=== PATIENT | male | born 1960 | race Caucasian/White ===

== ENCOUNTER 2017-02-17 17:14 | Emergency (ER) | payer OTHER ==
[~2017-02-17] VITALS: Ht 177.8 cm; Wt 143.8 kg
[2017-02-17] MEDS ORDERED: PRED50TA PO (17:50)
[2017-02-17] MEDS ORDERED: SULF1TAB24 PO (17:50)
[2017-02-17] MEDS ORDERED: predniSONE 10 MG TABLET PO ONE (18:00)
[2017-02-17] MEDS ORDERED: SMZ/TMP 800/160MG TABLET. PO ONE (18:00)
[2017-02-17 18:05] VITALS: BP 138/101
--- NOTE | 2017-02-17 18:25 | ED.ADGEN ---
Past History Past Medical History: GERD, Sinusitis, Other Past Surgical History: Other Alcohol Use: Occasionally Drug Use: None Adult General Chief Complaint Chief Complaint " My sinusitis is killing me... I ve been doing the nasal irrigation.. but it not enough.. when they get this bad and last this long... they put me on antibiotic...." HPI HPI Patient is a 57 year old male who presents with exacerbations of his sinusitis. 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 He has occasional sinus flareups particularly in seasonal changes of the year. Has had previous rhinoplasty. Patient denies any immunosuppression. Patient reports increased nasal discharge and discoloration and pain over sinuses. Review of Systems Review of Systems Constitutional: Denies fever or chills [] Eyes: Denies change in visual acuity, redness, or eye pain [] HENT:Complaints of nasal congestion and sore throat [] Respiratory: Denies cough or shortness of breath [] Cardiovascular: No additional information not addressed in HPI [] GI: Denies abdominal pain, nausea, vomiting, bloody stools or diarrhea [] : Denies dysuria or hematuria [] Musculoskeletal: Denies back pain or joint pain [] Integument: Denies rash or skin lesions [] Neurologic: Denies headache, focal weakness or sensory changes [] Endocrine: Denies polyuria or polydipsia [] All other systems were reviewed and found to be within normal limits, except as documented in this note. Family History Family History Noncontributory Current Medications Current Medications Current Medications Medications (Trade) Dose Ordered Sig/Sarah Start Time Stop Time Status Last Admin Dose Admin Prednisone (Prednisone) 50 mg 1X ONCE 02/17/17 18:00 02/17/17 18:01 DC 02/17/17 17:57 50 MG Trimethoprim/ Sulfamethoxazole (Bactrim Ds) 1 tab 1X ONCE 02/17/17 18:00 02/17/17 18:01 DC 02/17/17 17:56 1 TAB Allergies Allergies Allergies Coded Allergies Type Severity Reaction Last Updated Verified amoxicillin Allergy Unknown 02/17/17 Yes azithromycin Allergy Unknown 02/17/17 Yes cefdinir Allergy Unknown 02/17/17 Yes clavulanic acid Allergy Unknown 02/17/17 Yes Physical Exam Physical Exam Constitutional: Well developed, well nourished, in acute distress, non-toxic appearance. [] HENT: Normocephalic, atraumatic, bilateral external ears normal, oropharynx moist, postnasal drainage and erythema, no oral exudates, nose swollen turbinates with discolored rhinorrhea Eyes: PERRLA, EOMI, conjunctiva normal, no discharge. [] Neck: Normal range of motion, no tenderness, supple, no stridor. [] Cardiovascular:Heart rate regular rhythm, no murmur [] Lungs & Thorax: Bilateral breath sounds clear to auscultation [] Abdomen: Bowel sounds normal, soft, no tenderness, no masses, no pulsatile masses. [] Skin: Warm, dry, no erythema, no rash. [] Back: No tenderness, no CVA tenderness. [] Extremities: No tenderness, no cyanosis, no clubbing, ROM intact, no edema. [] Neurologic: Alert and oriented X 3, normal motor function, normal sensory function, no focal deficits noted. [] Psychologic: Affect normal, judgement normal, mood normal. [] Current Patient Data Vital Signs Vital Signs Date Time Temp Pulse Resp B/P (MAP) Pulse Ox O2 Delivery O2 Flow Rate FiO2 02/17/17 18:05 85 20 138/101 (113) 95 Room Air 02/17/17 17:14 98.4 EKG EKG [] Radiology/Procedures Radiology/Procedures [] Course & Med Decision Making Course & Med Decision Making Pertinent Labs and Imaging studies reviewed. (See chart for details). Patient to complete a course of Bactrim DS twice a day for 10 days. Patient take prednisone 50 mg a day for 5 days. Patient used Flonase 2 sprays at night daily. Patient use nasal saline rinses. Patient may use Benadryl at night. Patient follow-up with ENT in primary if no improvement. Patient may use Afrin 2 sprays at night for congestion [] Final Impression Final Impression 1. Sinusitis[] Problems: Dragon Disclaimer Dragon Disclaimer This electronic medical record was generated, in whole or in part, using a voice recognition dictation system. MANINDER ARREDONDO MD Feb 17, 2017 18:25
== END 2017-02-17 18:03 | disposition home or self-care (01) ==
LOC: ER 17:14
DX: J32.9 Chronic sinusitis, unspecified (principal); K21.9 Gastro-esophageal reflux disease without esophagitis; Z88.1 Allergy status to other antibiotic agents
CPT/HCPCS: 99283; J7512

== ENCOUNTER → 2019-10-29 | Outpatient (CLI) | payer OTHER ==
[~2019-10-29] MED LIST: PRED50TA PO; SULF1TAB24 PO
[2019-10-29 09:09] LABS: BASO % 1 % (0-3); EOS # 0.1 x10^3/uL (0.0-0.7); EOS % 2 % (0-3); HEMATOCRIT 43.5 % (39.0-53.0); HEMOGLOBIN 14.6 g/dL (13.0-17.5); LYMPH # 1.1 x10^3/uL (1.0-4.8); LYMPH % 23 % (24-48); MEAN CORPUSCULAR HEMOGLOBIN 30 pg (25-35); MEAN CORPUSCULAR HGB CONC 34 g/dL (31-37); MEAN CORPUSCULAR VOLUME 89 fL (79-100); MONO # 0.6 x10^3/uL (0.0-1.1); MONO % 13 % (0-9); NEUT # 3.1 x10^3uL (1.8-7.7); NEUT % 63 % (31-73); PLATELET COUNT 204 x10^3/uL (140-400); RED CELL DISTRIBUTION WIDTH 13.2 % (11.5-14.5)
[2019-10-29 09:13] LABS: ALBUMIN 3.6 g/dL (3.4-5.0); ALBUMIN/GLOBULIN RATIO 0.9 (1.0-1.7); CALCIUM 8.9 mg/dL (8.5-10.1); CREATININE 1.4 mg/dL (0.7-1.3); GFR 51.9; POTASSIUM 4.3 mmol/L (3.5-5.1); TOTAL BILIRUBIN 0.5 mg/dL (0.2-1.0); TOTAL PROTEIN 7.6 g/dL (6.4-8.2)
[2019-10-29 09:22] LABS: CLARITY,URINE CLEAR; COLOR,URINE STRAW
[2019-10-29 09:23] LABS: BILIRUBIN,URINE NEG (NEG); GLUCOSE,URINE NEG (NEG)
[2019-10-29 09:24] LABS: BACTERIA,URINE 0 /HPF (0-FEW); NITRITE,URINE NEG (NEG); RBC,URINE 0 /HPF (0-2); UROBILINOGEN,URINE 0.2 mg/dL (0.2 mg/dL)
[2019-10-29 09:25] LABS: SQUAMOUS EPITHELIAL CELL,UR OCC /LPF
[2019-10-29 14:28] LABS: FREE T4 0.87 ng/dL (0.76-1.46); THYROID STIM HORMONE (TSH) 4.252 uIU/mL (0.358-3.740)
== END | disposition home or self-care (01) ==
LOC: LAB 08:05
PROVIDERS: ATTEND Physician Assistant
DX: Z12.5 Encounter for screening for malignant neoplasm of prostate (principal); I10 Essential (primary) hypertension; R53.83 Other fatigue; R35.0 Frequency of micturition
CPT/HCPCS: 36415; 80053; 80061; 81001; 84439; 84443; 85025; G0103

== ENCOUNTER → 2020-09-21 | Outpatient (CLI) | payer OTHER ==
[2020-09-21 10:59] LABS: BASO % 0 % (0-3); EOS # 0.1 x10^3/uL (0.0-0.7); EOS % 3 % (0-3); HEMOGLOBIN 14.2 g/dL (13.0-17.5); LYMPH # 1.3 x10^3/uL (1.0-4.8); LYMPH % 26 % (24-48); MEAN CORPUSCULAR HEMOGLOBIN 30 pg (25-35); MEAN CORPUSCULAR HGB CONC 34 g/dL (31-37); MEAN CORPUSCULAR VOLUME 89 fL (79-100); MONO # 0.5 x10^3/uL (0.0-1.1); MONO % 11 % (0-9); NEUT # 2.9 x10^3uL (1.8-7.7); NEUT % 60 % (31-73); PLATELET COUNT 201 x10^3/uL (140-400); RED BLOOD COUNT 4.73 x10^6/uL (4.30-5.70); WHITE BLOOD COUNT 4.8 x10^3/uL (4.0-11.0)
[2020-09-21 11:24] LABS: ALBUMIN 3.8 g/dL (3.4-5.0); ALBUMIN/GLOBULIN RATIO 1.1 (1.0-1.7); CALCIUM 8.6 mg/dL (8.5-10.1); CREATININE 1.2 mg/dL (0.7-1.3); GFR 61.8; POTASSIUM 4.3 mmol/L (3.5-5.1); TOTAL BILIRUBIN 0.6 mg/dL (0.2-1.0); TOTAL PROTEIN 7.3 g/dL (6.4-8.2)
[2020-09-21 15:20] LABS: FREE T4 0.81 ng/dL (0.76-1.46); THYROID STIM HORMONE (TSH) 3.135 uIU/mL (0.358-3.740)
== END ==
LOC: LAB 10:15
PROVIDERS: ATTEND Physician Assistant
DX: Z00.00 Encounter for general adult medical examination without abnormal findings (principal); I10 Essential (primary) hypertension; G47.33 Obstructive sleep apnea (adult) (pediatric); M25.50 Pain in unspecified joint; R35.0 Frequency of micturition
CPT/HCPCS: 36415; 80053; 80061; 83880; 84439; 84443; 85025; G0103

== ENCOUNTER 2021-07-21 13:51 | Emergency (ER) | payer OTHER ==
[~2021-07-21] VITALS: Ht 177.8 cm; Wt 140.9 kg
[2021-07-21 13:55] VITALS: BP 121/77
[2021-07-21] MEDS ORDERED: DEXAMETHASONE 4 MG TABLET PO ONE (14:15)
[2021-07-21] MEDS ORDERED: AMOX1TAB11 PO (14:51)
--- NOTE | 2021-07-21 14:52 | PHYS DOC ---
Past History Past Medical History: GERD, Sinusitis, Other Past Surgical History: Other Alcohol Use: Occasionally Drug Use: None General Adult EDM: Chief Complaint: COUGH HPI: HPI: Patient is a 61-year-old male presents with cough, congestion, sinus pressure for the last 5 days. Patient denies chest pain or shortness of breath. Patient has a history of sinusitis but has not had issues since his surgery. Patient's been using [place] pot, Claritin, Flonase, and Benadryl at night. Patient states his symptoms are not resolving and he is having trouble sleeping at night. History of sinusitis, hypertension. Review of Systems: Review of Systems: ROS At least 10 ROS systems have been reviewed and are negative except as documented in the HPI. General: Negative except as outlined in HPI above. Skin: Negative except as outlined in HPI above. HEENT: Negative except as outlined in HPI above. Neck: Negative except as outlined in HPI above. Respiratory: Negative except as outlined in HPI above.. Cardiovascular: Negative except as outlined in HPI above. Abdomen: Negative except as outlined in HPI above. : Negative except as outlined in HPI above. Back/MSK: Negative except as outlined in HPI above. Neuro: Negative except as outlined in HPI above. Psych: Negative except as outlined in HPI above. Current Medications: Current Meds: Current Medications Medications (Trade) Dose Ordered Sig/Sarah Start Time Stop Time Status Last Admin Dose Admin Dexamethasone (Decadron) 10 mg 1X ONCE 07/21/21 14:15 07/21/21 14:16 DC 07/21/21 14:33 10 MG Allergies: Allergies: Allergies Coded Allergies Type Severity Reaction Last Updated Verified amoxicillin Allergy Unknown 02/17/17 Yes azithromycin Allergy Unknown 02/17/17 Yes cefdinir Allergy Unknown 02/17/17 Yes clavulanic acid Allergy Unknown 02/17/17 Yes erythromycin base Allergy Unknown 07/21/21 Yes Physical Exam: PE: Constitutional: Well developed, well nourished, no acute distress, non-toxic appearance. [] HENT: Normocephalic, atraumatic, bilateral external ears normal, oropharynx moist, no oral exudates, nose normal. [] Eyes: PERRLA, EOMI, conjunctiva normal, no discharge. [] Neck: Normal range of motion, no tenderness, supple, no stridor. [] Cardiovascular:Heart rate regular rhythm, no murmur, Lungs & Thorax: Bilateral breath sounds clear to auscultation, no wheezing Abdomen: Bowel sounds normal, soft, no tenderness, no masses, no pulsatile masses. [] Skin: Warm, dry, no erythema, no rash. [] Back: No tenderness, no CVA tenderness. [] Extremities: No tenderness, no cyanosis, no clubbing, ROM intact, no edema. [] Neurologic: Alert and oriented X 3, normal motor function, normal sensory function, no focal deficits noted. [] Psychologic: Affect normal, judgement normal, mood normal. [] EKG: EKG: [] Radiology/Procedures: Radiology/Procedures: [] Heart Score: C/O Chest Pain: No Risk Factors: Risk Factors: DM, Current or recent (<one month) smoker, HTN, HLP, family history of CAD, obesity. Risk Scores: Score 0 - 3: 2.5% MACE over next 6 weeks - Discharge Home Score 4 - 6: 20.3% MACE over next 6 weeks - Admit for Clinical Observation Score 7 - 10: 72.7% MACE over next 6 weeks - Early Invasive Strategies Course & Med Decision Making: Course & Med Decision Making Pertinent Labs and Imaging studies reviewed. (See chart for details) [] 61-year-old male presents with cough, congestion, sinus pressure for last 5 days. Denies chest pain and shortness of breath. Work-up in ER consisted of chest x-ray, dexamethasone. Advised patient to continue taking Claritin, Benadryl at night, using Flonase at home. Patient sent home with a prescription to treat sinusitis. Patient has a history of sinusitis and has had to have surgery. Patient states that symptoms are similar. Discussed return precautions. Advised patient to follow-up with PCP. Fina Disclaimer: Fina Disclaimer: This electronic medical record was generated, in whole or in part, using a voice recognition dictation system. Departure Departure: Impression: Primary Impression: Sinusitis Qualified Codes: J01.11 - Acute recurrent frontal sinusitis Disposition: HOME / SELF CARE / HOMELESS Condition: STABLE Referrals: WADE BERNAL (PCP) Patient Instructions: Sinusitis Additional Instructions: You are seen the emergency room for cough, congestion. You were given steroids while in the ER. Continue using Claritin, [place] pot, nasal spray, Benadryl at night. Please follow-up with your PCP if your symptoms or not resolving. Return to emergency room for worsening symptoms or concerns EMERGENCY DEPARTMENT GENERAL DISCHARGE INSTRUCTIONS Thank you for coming to [facility] (ED) today and trusting us with you care. We trust that you had a positivie experience in our Emergency Department. If you wish to speak to the department management, you may call the director at [phone]. YOUR FOLLOW UP INSTRUCTIONS ARE FOLLOWS: 1. Do you have a private Doctor? If you do not have a private doctor, please ask for a resource list of physicians or clinics that may be able to assist you with follow up care. 2. The Emergency Physician has interpreted your x-rays. The X-Ray specialist will also review them. If there is a change in the findings, you will be notified in 48 hours when at all possible. 3. A lab test or culture has been done, your results will be reviewed and you will be notified if you need a change in treatment. ADDITIONAL INSTRUCTIONS AND INFORMATION: 1. Your care today has been supervised by a physician who is specially trained in emergency care. Many problems require more than one evaluation for a complete diagnosis and treatment. We recommend that you schedule your follow up appointment as recommended to ensure complete treatment of you illness or injury. If you are unable to obtain follow up care and continue to have a problem, or if your condition worsens, we recommend that you return to the ED. 2. We are not able to safely determine your condition over the phone nor are we able to give sound medical advice over the phone. For these safety reasons, if you call for medical advice we will ask you to come to the ED for further evaluation. 3. If you have any questions regarding these discharge instructions please call the ED at [phone]. SAFETY INFORMATION: In the interest of safety, wellness, and injury prevention; we encourage you to wear your sealbelt, if you smoke; quite smoking, and we encourage family to use a protective helmet for bicycling and other sporting events that present an increased risk for head injury. IF YOUR SYMPTOMS WORSEN OR NEW SYMPTOMS DEVELOP, OR YOU HAVE CONCERNS ABOUT YOUR CONDITION; OR IF YOUR CONDITION WORSENS WHILE YOU ARE WAITING FOR YOUR FOLLOW UP APPOINTMENT; EITHER CONTACT YOUR PRIMARY CARE DOCTOR, THE PHYSICIAN WHOSE NAME AND NUMBER YOU WERE GIVEN, OR RETURN TO THE ED IMMEDIATELY. Scripts Doxycycline Hyclate (DOXYCYCLINE HYCLATE) 100 Mg Tablet 1 TAB PO BID for SINUSITIS for 5 Days, #10 TAB Prov: SUGAR FRAIRE APRN 07/21/21 Amoxicillin/Potassium Clav (AMOX TR-K CLV 875-125 MG TAB) 1 Each Tablet 1 TAB PO BID for SINUSITITIS for 7 Days, #14 TAB Prov: SUGAR FRAIRE APRN 07/21/21 SUGAR FRAIRE APRN July 21, 2021 14:52
[2021-07-21] MEDS ORDERED: DOXY100T PO (15:24)
--- NOTE | 2021-07-21 15:55 | RAD ---
Chest, PA and Lateral: Technique: PA and lateral views of the chest were obtained. History: Cough. Comparison: None. Findings: The heart and pulmonary vasculature appear within normal limits. The lungs are clear. The pleural ma rgins are clear. Moderate degenerative changes thoracic spine. Impression: No acute chest process is seen. Electronically signed by: Mac Stover MD (07/21/2021 3:53 PM) [id number]
== END 2021-07-21 15:55 | disposition home or self-care (01) ==
LOC: ER 13:51
DX: J01.11 Acute recurrent frontal sinusitis (principal); K21.9 Gastro-esophageal reflux disease without esophagitis; I10 Essential (primary) hypertension; Z88.1 Allergy status to other antibiotic agents
CPT/HCPCS: 71046; 99283; J8540

== ENCOUNTER 2021-07-29 12:58 | Emergency (ER) | payer OTHER ==
[~2021-07-29] VITALS: Ht 177.8 cm; Wt 140.9 kg
[~2021-07-29 12:58] MED LIST changes: +AMOX1TAB11 PO; +DOXY100T PO
[2021-07-29 13:12] VITALS: BP 132/78
[2021-07-29] MEDS ORDERED: METH4TAB2 PO (13:30)
--- NOTE | 2021-07-29 13:30 | PHYS DOC ---
Past History Past Medical History: GERD, Sinusitis, Other (ALMA ROSA JONES APRN) Past Surgical History: Other Additional Past Surgical Histo: KNEE (ALMA ROSA JONES APRN) Alcohol Use: Occasionally Drug Use: None (ALMA ROSA JONES APRN) General Adult EDM: Chief Complaint: COUGH HPI: HPI: Patient is a 61-year-old male who presents to the emergency department for clear nasal drainage, postnasal drainage and a cough x2 weeks. Patient was seen in this emergency department on Friday and diagnosed with sinusitis and given an antibiotic. He has been using Claritin, nasal sprays and [place] pot at home without relief. Patient denies any shortness of breath or fevers. Patient has chronic sinus issues/sinusitis with a history of sinus surgery. (ALMA ROSA JONES APRN) Review of Systems: Review of Systems: Constitutional: See HPI HENT: See HPI Respiratory: See HPI (ALMA ROSA JONES APRN) Allergies: Allergies: Allergies Coded Allergies Type Severity Reaction Last Updated Verified amoxicillin Allergy Unknown 02/17/17 Yes azithromycin Allergy Unknown 02/17/17 Yes cefdinir Allergy Unknown 02/17/17 Yes clavulanic acid Allergy Unknown 02/17/17 Yes erythromycin base Allergy Unknown 07/21/21 Yes (ALMA ROSA JONES APRN) Physical Exam: PE: Constitutional: Well developed, well nourished, no acute distress, non-toxic appearance. [] HENT: Normocephalic, atraumatic, bilateral external ears normal, oropharynx moist, no oral exudates, nose normal. [] Eyes: PERRL, EOMI, conjunctiva normal, no discharge. [] Neck: Normal range of motion, no stridor Cardiovascular:Heart rate regular rhythm, no murmur [] Lungs & Thorax: Bilateral breath sounds clear to auscultation [] Abdomen: Bowel sounds normal, soft, no tenderness, no masses, no pulsatile masses. [] Skin: Warm, dry, no erythema, no rash. [] Back: No tenderness, normal ROM Extremities: No tenderness, no cyanosis, no clubbing, ROM intact, no edema. [] Neurologic: Alert and oriented X 3, normal motor function, normal sensory function, no focal deficits noted. [] Psychologic: Affect normal, judgement normal, mood normal. [] (ALMA ROSA JONES APRN) Current Patient Data: Vital Signs: Vital Signs Date Time Temp Pulse Resp B/P (MAP) Pulse Ox O2 Delivery O2 Flow Rate FiO2 07/29/21 13:12 97.9 77 16 132/78 (96) 98 Room Air (ALMA ROSA JONES APRN) EKG: EKG: [] (ALMA ROSA JONES APRN) Radiology/Procedures: Radiology/Procedures: [] (ALMA ROSA JONES APRN) Heart Score: C/O Chest Pain: N/A Risk Factors: Risk Factors: DM, Current or recent (<one month) smoker, HTN, HLP, family history of CAD, obesity. Risk Scores: Score 0 - 3: 2.5% MACE over next 6 weeks - Discharge Home Score 4 - 6: 20.3% MACE over next 6 weeks - Admit for Clinical Observation Score 7 - 10: 72.7% MACE over next 6 weeks - Early Invasive Strategies (ALMA ROSA JONES APRN) Course & Med Decision Making: Course & Med Decision Making Pertinent Labs and Imaging studies reviewed. (See chart for details) [] Patient resents to the emergency department for nasal drainage and cough x2 weeks. Patient has already received antibiotic treatment for sinusitis. Patient will be given a steroid Dosepak to help with inflammation. He is advised to continue his Claritin and nasal sprays. I discussed with patient all findings and diagnostic testing as well as the need to follow-up with PCP for further evaluation and treatment or return to the ER if any new or worsening symptoms. Strict return precautions were also discussed at length. Patient voiced understanding and agreement with the plan. Patient is hemodynamically stable at the time of disposition. (ALMA ROSA JONES APRN) Dragon Disclaimer: Dragon Disclaimer: This electronic medical record was generated, in whole or in part, using a voice recognition dictation system. (ALMA ROSA JONES APRN) Attending Co-Sign The patient was seen and interviewed as well as examined at the bedside. The chart was reviewed. The case was discussed. Agree with the plan of care. (DAPHNE SCHWARTZ DO) Departure Departure: Impression: Primary Impression: Sinus drainage Disposition: HOME / SELF CARE / HOMELESS Condition: GOOD Referrals: WADE BERNAL (PCP) Patient Instructions: Sinusitis Additional Instructions: You are seen in the emergency department for nasal drainage and cough. You are being discharged home with a steroid Dosepak, please take this as directed. Increase your fluids to thin your secretions. Continue taking your Claritin and nasal sprays. Follow-up with an ENT if your symptoms persist. Return to the emergency department if you develop shortness of breath, chest pain, high fevers refractory to treatment, intractable nausea or vomiting. Scripts Methylprednisolone (MEDROL) 4 Mg Tab.ds.pk 1 PKG PO UD for inflammation, #1 PKG 0 Refills Prov: ALMA ROSA JONES APRN 07/29/21 ALMA ROSA JONES APRN July 29, 2021 13:30 DAPHNE SCHWARTZ DO July 30, 2021 11:31
== END 2021-07-29 13:33 | disposition home or self-care (01) ==
LOC: ER 12:58
DX: J34.89 Other specified disorders of nose and nasal sinuses (principal)
CPT/HCPCS: 99283